=== PATIENT | male | born 1975 | race Caucasian/White ===

== ENCOUNTER 2018-09-23 01:39 | Emergency (ER) | payer OTHER ==
[~2018-09-23] VITALS: Ht 182.9 cm; Wt 90.7 kg
[~2018-09-23 01:39] MED LIST: CEPH500 PO; HYDACE5 PO; OXYACE5T PO
== END 2018-09-23 03:43 | disposition home or self-care (01) ==
LOC: ER 01:39
DX: S63.502A Unspecified sprain of left wrist, initial encounter (principal); S90.512A Abrasion, left ankle, initial encounter; Y04.8XXA Assault by other bodily force, initial encounter; Z79.891 Long term (current) use of opiate analgesic
CPT/HCPCS: 29125; 73110; 99283-25; A9270-GY

== ENCOUNTER → 2022-05-08 | Outpatient (CLI) | payer OTHER | END | disposition home or self-care (01) | LOC: LAB SHORT 14:25 → LAB 14:25 | DX: J02.9 Acute pharyngitis, unspecified (principal) | CPT/HCPCS: 87081 ==